=== PATIENT | female | born 1970 | race Caucasian/White ===

== ENCOUNTER 2017-03-27 13:28 | Observation (INO) | payer SELFPAY ==
[2017-03-27] MEDS: MORPHINE SULFATE 4 MG INJ IV PRN ×3 (14:05→22:18)
[2017-03-27] MEDS: Sodium Chloride 0.9% 1000 ML 1,000 ML IV SCH (14:07)
[2017-03-27 14:08] LABS: BASOPHIL % 0.4 % (0.0-0.4); Eosinophil % 0.8 % (0.00-5.0); Granulocytes % 79.9 % (36.0-66.0); Lymphocytes % 14.7 % (24.0-44.0); Mean Corpuscular Hemoglobin 31.9 pg (26-32); Mean Platelet Volume 11.6 fl (6-9.5); Monocytes % 4.2 % (0.0-12.0); Platelet Count 335 K/mm3 (150-450); Red Blood Count 4.11 M/mm3 (4.1-5.4); Red Cell Distribution Width 12.3 % (11.5-14.0); White Blood Count 10.9 K/mm3 (4.0-10.5)
[2017-03-27] MEDS: Levofloxacin 500MG/100ML D5W 500 MG/100 ML BAG IV SCH (14:48)
[2017-03-27 14:49] LABS: ALBUMIN 3.7 g/dL (3.4-5.0); ALKALINE PHOSPHATASE 67 U/L (46-116); ANION GAP 12.8 MEQ/L (5-15); BLOOD UREA NITROGEN 6 mg/dL (9-20); CHLORIDE 105 mEq/L (98-107); Carbon Dioxide 26.7 mEq/L (21-32); Glucose 93 MG/DL (70-110); Potassium 3.9 mEq/L (3.5-5.1); SGOT/AST 14 U/L (15-37); SODIUM 141 mEq/L (136-145); Total Protein 6.9 gm/dL (6.4-8.2)
[2017-03-27 15:23] LABS: SGPT/ALT 7 U/L (12-78)
--- NOTE | 2017-03-27 15:46 | XRAY ---
Indication: Left lower quadrant pain. Multiple contiguous axial images obtained through the abdomen and pelvis using 80 cc Isovue 370 contrast. Enteric contrast also given. Comparison: None Lung bases are clear. Heart is not enlarged. Contrasted stomach and bowel loops appear nonobstructed. There is mild/moderate diffuse scattered colonic fecal debris throughout without diverticulosis/diverticulitis. Normal appendix. No free fluid/air. Previous cholecystectomy. Mild biliary tree prominence with the common bile duct up to 12 mm in diameter, within normal limits for cholecystectomy. 2.1 cm right ovary cyst. Uterus surgically absent. Remaining liver, pancreas, spleen, adrenal glands, kidneys, ureters, and bladder appear unremarkable. Minimal aortoiliac calcifications. No AAA or pathologic retroperitoneal lymphadenopathy. Osseous structures intact with lumbosacral junction degenerative disc disease. No ventral or inguinal hernias. Impression: 1. Fecal stasis without obstruction. 2. 2.1 cm right ovary cyst. 3. No acute intra-abdominal/pelvic abnormalities. CT DI 22.02
[2017-03-27 15:55] LABS: Erythrocyte Sedimentation Rate 9 mm/hr (0-20)
[2017-03-27] MEDS: FLAGYL 500 MG IVPB 500 MG/100 ML BAG IV SCH ×2 (17:32→23:15)
[2017-03-27] MEDS: NICODERM CQ 14 MG TOP SCH (17:59)
[2017-03-27] MEDS: TYLENOL 325 MG PO PRN (18:00)
[2017-03-27] MEDS: Tums EX 750 MG PO PRN (23:32)
[2017-03-28] MEDS: MORPHINE SULFATE 4 MG INJ IV PRN ×4 (03:02→18:03)
[2017-03-28] MEDS: Sodium Chloride 0.9% 1000 ML 1,000 ML IV SCH ×2 (03:06→15:47)
[2017-03-28] MEDS: FLAGYL 500 MG IVPB 500 MG/100 ML BAG IV SCH ×4 (05:46→23:27)
--- NOTE | 2017-03-28 07:43 | PCM.NOTE ---
Date and Time: 03/28/17 0741 Subjective Assessment: patient feeling a little better today, still with significant LLQ pain. tolerating clears and pain seems slightly improved Objective Exam General Appearance: no apparent distress, alert Respiratory Exam: normal breath sounds, lungs clear, No respiratory distress Cardiovascular Exam: regular rate/rhythm, normal heart sounds Gastrointestinal/Abdomen Exam: tenderness (LLQ) Extremity Exam: normal inspection, normal range of motion OBJECTIVE DATA Vital Signs: Vital Signs - 24 hr Temp Pulse Resp BP Pulse Ox 03/28/17 07:24 98.1 F 59 L 20 111/64 97 03/28/17 04:25 98.0 F 58 L 15 124/69 97 03/27/17 23:44 98.0 F 62 16 126/60 96 03/27/17 20:00 97.9 F 57 L 16 122/70 96 03/27/17 14:14 98.2 F 65 20 136/71 99 03/27/17 13:43 98.2 F 65 20 136/71 99 Pain Assessment - Last Documented Pain Intensity 5 Pain Scale Used 0-10 Pain Scale Intake and Output: Intake & Output 03/25/17 03/26/17 03/27/17 03/28/17 11:59 11:59 11:59 11:59 Intake Total 2479 Output Total 500 Balance 1979 Weight 79.889 kg Lab Results: Lab Results-Last 24 Hours 03/27/17 03/27/17 Range/Units 13:50 14:15 WBC 10.9 H (4.0-10.5) K/mm3 RBC 4.11 (4.1-5.4) M/mm3 Hgb 13.1 (12.0-16.0) gm/dl Hct 40.7 (35-47) % MCV 99.0 (78-100) fl MCH 31.9 (26-32) pg MCHC 32.2 (32-36) g/dl RDW 12.3 (11.5-14.0) % Plt Count 335 (150-450) K/mm3 MPV 11.6 H (6-9.5) fl Gran % 79.9 H (36.0-66.0) % Lymphocytes % 14.7 L (24.0-44.0) % Monocytes % 4.2 (0.0-12.0) % Eosinophils % 0.8 (0.00-5.0) % Basophils % 0.4 (0.0-0.4) % Basophils # 0.04 (0-0.4) ESR 9 (0-20) mm/hr Sodium 141 (136-145) mEq/L Potassium 3.9 (3.5-5.1) mEq/L Chloride 105 (98-107) mEq/L Carbon Dioxide 26.7 (21-32) mEq/L Anion Gap 12.8 (5-15) MEQ/L BUN 6 L (9-20) mg/dL Creatinine 0.57 (0.55-1.30) mg/dl Estimated GFR > 60 ML/MIN Glucose 93 (70-110) MG/DL Calcium 9.3 (8.5-10.1) mg/dL Total Bilirubin 0.30 (0.2-1.0) mg/dL AST 14 L (15-37) U/L ALT 7 L (12-78) U/L Alkaline Phosphatase 67 (46-116) U/L Serum Total Protein 6.9 (6.4-8.2) gm/dL Albumin 3.7 (3.4-5.0) g/dL Radiology Exams: Radiology Procedures Category Date Time Status ABDOMEN AND PELVIS W CONTRAST [CT] Routine Exams 03/27/17 14:30 Completed Assessment/Plan (1) Acute diverticulitis Current Visit: Yes Status: Acute Assessment & Plan: clinically with illness and exam c/w diverticulitis. ct was negative, will continue with IV levaquin and flagyl at this time Code(s): K57.92 - DVTRCLI OF INTEST, PART UNSP, W/O PERF OR ABSCESS W/O BLEED
[2017-03-28] MEDS: Levofloxacin 500MG/100ML D5W 500 MG/100 ML BAG IV SCH (10:04)
[2017-03-28] MEDS: TYLENOL 325 MG PO PRN (10:08)
[2017-03-28] MEDS: NICODERM CQ 14 MG TOP SCH (17:25)
[2017-03-28] MEDS ORDERED: Zofran 4 MG/2 ML VIAL IV PRN (21:02)
[2017-03-28] MEDS: DILAUDID 2 MG INJECTION IV PRN (21:17)
[2017-03-28] MEDS: Tums EX 750 MG PO PRN (21:18)
[2017-03-29] MEDS: DILAUDID 2 MG INJECTION IV PRN ×6 (02:25→23:18)
[2017-03-29] MEDS: FLAGYL 500 MG IVPB 500 MG/100 ML BAG IV SCH ×4 (05:40→23:29)
[2017-03-29 06:02] LABS: BASOPHIL % 0.5 % (0.0-0.4); Eosinophil % 1.7 % (0.00-5.0); Granulocytes % 63.4 % (36.0-66.0); Lymphocytes % 27.3 % (24.0-44.0); Mean Cell Volume 100.3 fl (78-100); Mean Platelet Volume 11.2 fl (6-9.5); Monocytes % 7.1 % (0.0-12.0); Platelet Count 270 K/mm3 (150-450); Red Blood Count 3.21 M/mm3 (4.1-5.4); Red Cell Distribution Width 12.2 % (11.5-14.0); White Blood Count 7.8 K/mm3 (4.0-10.5)
[2017-03-29 06:15] LABS: ANION GAP 10.2 MEQ/L (5-15); BLOOD UREA NITROGEN 6 mg/dL (9-20); CHLORIDE 109 mEq/L (98-107); Glucose 94 MG/DL (70-110); Potassium 3.6 mEq/L (3.5-5.1); SODIUM 141 mEq/L (136-145)
--- NOTE | 2017-03-29 08:12 | PCM.NOTE ---
Date and Time: 03/29/17 0809 Subjective Assessment: patient had worsening pain last night after eating, describes rumbling pain in her lower stomach and has had diarrhea as well. Objective Exam General Appearance: no apparent distress, alert Respiratory Exam: normal breath sounds, lungs clear, No respiratory distress Cardiovascular Exam: regular rate/rhythm, normal heart sounds Gastrointestinal/Abdomen Exam: tenderness (LLQ), No mass, No guarding Extremity Exam: normal inspection, normal range of motion OBJECTIVE DATA Vital Signs: Vital Signs - 24 hr Temp Pulse Resp BP Pulse Ox 03/29/17 07:22 98.5 F 51 L 16 117/59 96 03/29/17 04:08 98.0 F 46 L 16 112/61 94 L 03/29/17 00:08 98.1 F 60 15 127/65 96 03/28/17 20:19 98.7 F 57 L 16 130/74 97 03/28/17 15:48 98.1 F 55 L 18 104/58 98 03/28/17 12:29 98.2 F 57 L 18 105/58 97 Pain Assessment - Last Documented Pain Intensity 8 Pain Scale Used 0-10 Pain Scale Intake and Output: Intake & Output 03/26/17 03/27/17 03/28/17 03/29/17 11:59 11:59 11:59 11:59 Intake Total 2839 4142 Output Total 500 300 Balance 2339 3842 Weight 79.889 kg Lab Results: Lab Results-Last 24 Hours 03/29/17 03/29/17 Range/Units 05:05 05:05 WBC 7.8 (4.0-10.5) K/mm3 RBC 3.21 L (4.1-5.4) M/mm3 Hgb 10.3 L (12.0-16.0) gm/dl Hct 32.2 L (35-47) % MCV 100.3 H (78-100) fl MCH 32.0 (26-32) pg MCHC 32.0 (32-36) g/dl RDW 12.2 (11.5-14.0) % Plt Count 270 (150-450) K/mm3 MPV 11.2 H (6-9.5) fl Gran % 63.4 (36.0-66.0) % Lymphocytes % 27.3 (24.0-44.0) % Monocytes % 7.1 (0.0-12.0) % Eosinophils % 1.7 (0.00-5.0) % Basophils % 0.5 (0.0-0.4) % Basophils # 0.04 (0-0.4) Sodium 141 (136-145) mEq/L Potassium 3.6 (3.5-5.1) mEq/L Chloride 109 H (98-107) mEq/L Carbon Dioxide 25.0 (21-32) mEq/L Anion Gap 10.2 (5-15) MEQ/L BUN 6 L (9-20) mg/dL Creatinine 0.56 (0.55-1.30) mg/dl Estimated GFR > 60 ML/MIN Glucose 94 (70-110) MG/DL Calcium 8.3 L (8.5-10.1) mg/dL Radiology Exams: Radiology Procedures Category Date Time Status ABDOMEN AND PELVIS W CONTRAST [CT] Routine Exams 03/27/17 14:30 Completed Assessment/Plan (1) Acute diverticulitis Current Visit: Yes Status: Acute Assessment & Plan: clinically seems consistent with diverticulitis vs colitis, will check stool studies since patient is having diarrhea now. Code(s): K57.92 - DVTRCLI OF INTEST, PART UNSP, W/O PERF OR ABSCESS W/O BLEED
[2017-03-29] MEDS: Levofloxacin 500MG/100ML D5W 500 MG/100 ML BAG IV SCH (09:27)
[2017-03-29] MEDS: TYLENOL 325 MG PO PRN (12:50)
[2017-03-29] MEDS: Sodium Chloride 0.9% 1000 ML 1,000 ML IV SCH (16:52)
[2017-03-29] MEDS: NICODERM CQ 14 MG TOP SCH (17:24)
[2017-03-30] MEDS: TYLENOL 325 MG PO PRN (00:31)
[2017-03-30] MEDS: DILAUDID 2 MG INJECTION IV PRN ×3 (04:15→12:13)
[2017-03-30] MEDS: Sodium Chloride 0.9% 1000 ML 1,000 ML IV SCH (04:19)
[2017-03-30] MEDS: FLAGYL 500 MG IVPB 500 MG/100 ML BAG IV SCH (05:57)
[2017-03-30 06:14] LABS: BASOPHIL % 0.3 % (0.0-0.4); Granulocytes % 57.6 % (36.0-66.0); Lymphocytes % 32.9 % (24.0-44.0); Mean Cell Volume 99.7 fl (78-100); Mean Platelet Volume 11.4 fl (6-9.5); Monocytes % 7.2 % (0.0-12.0); Platelet Count 276 K/mm3 (150-450); Red Blood Count 3.12 M/mm3 (4.1-5.4); White Blood Count 7.5 K/mm3 (4.0-10.5)
[2017-03-30 06:37] LABS: ALBUMIN 2.9 g/dL (3.4-5.0); ALKALINE PHOSPHATASE 48 U/L (46-116); ANION GAP 11.7 MEQ/L (5-15); BLOOD UREA NITROGEN 8 mg/dL (9-20); CHLORIDE 110 mEq/L (98-107); Carbon Dioxide 22.7 mEq/L (21-32); Glucose 112 MG/DL (70-110); Potassium 3.5 mEq/L (3.5-5.1); SGOT/AST 15 U/L (15-37); SGPT/ALT 17 U/L (12-78); SODIUM 141 mEq/L (136-145); Total Protein 5.3 gm/dL (6.4-8.2)
[2017-03-30 07:53] VITALS: BP 140/69; PULSE 48
[2017-03-30 08:44] VITALS: O2SAT 98
[2017-03-30] MEDS: Levofloxacin 500MG/100ML D5W 500 MG/100 ML BAG IV SCH (08:51)
--- NOTE | 2017-03-30 11:03 | PCM.DCORD ---
- Discharge Discharge Date: 03/30/17 Disposition: Home, Self-Care Condition: Stable Prescriptions: New Metronidazole 500 mg [Flagyl 500 MG] 500 mg PO QID #16 tablet Hydrocodone Bit/Acetaminophen [Hydrocodon-Acetaminophen 5-325] 1 each PO QID PRN #20 tablet PRN Reason: Pain Levofloxacin [Levofloxacin 500 MG Tablet] 500 mg PO DAILY #4 tablet Continue Codeine/Butalbital/ASA/Caffein [Fiorinal with Codeine #3 Cap] 1 each PO Q4HPRN PRN PRN Reason: migraines Follow up with: STEVIE ALCAZAR MD [Primary Care Provider] - 04/05/17 9:45 am TIERRA SUGGS [ACTIVE STAFF] - 04/02/17 4:00 pm (at [facility]) Forms: Patient Portal Information
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
--- NOTE | 2017-04-01 12:38 | DS ---
DISCHARGE DIAGNOSIS: DIVERTICULITIS. DISCHARGE PHYSICAL EXAMINATION: VITALS: Temperature current 98.5F, temperature max 98.5F, heart rate 47 to 58, respiratory rate 16 to 18, blood pressure 112 to 143 over 57 to 89. Oxygen saturation 95 to 98% on room air. GENERAL: The patient is sitting up in bed a pleasant talkative lady in no acute distress. CVS: She has a regular rate and rhythm. No murmurs, gallops or rubs are appreciated. CHEST: Clear to auscultation bilaterally. No crackles or wheezes. ABDOMEN: She has normal bowel sounds, some mild left lower quadrant tenderness. No guarding, no rigidity. EXTREMITIES: No clubbing, cyanosis or edema. SKIN: Warm, dry and intact. REVIEW OF SYSTEMS: The patient reports she has some back pain from being in bed and that the Dilaudid does not always help with this. She reports some loose stools. She has been able to take food by mouth without problems. She would like to try to go home. HOSPITAL COURSE: DIVERTICULITIS: Dr. Diaz treated this patient until the date of discharge. She was on IV Levaquin, IV metronidazole. I plan to continue four more days as an outpatient. [facility] was contacted and stated that Levaquin for four days would be $16.99 and metronidazole for 500 mg four times a day would be $26.99. The patient is agreeable to this and states that she would be able to afford this. She is also asking for some pain medication at home so will also send her with a script for hydrocodone 5/325 mg 1 tablet p.o. four times a day as needed for pain #20 with no refills. The patient was told not to drive while taking this and it was just for short term pain. She will follow up with Dr. Diaz this coming week. She also was seen by general surgeons and they plan to do a colonoscopy as an outpatient and she has a follow up scheduled with them as well. Stool came back negative for Clostridium difficile. The culture is still pending of course because it was just sent today. The patient was discharged to home in good condition. Please see discharge order for the discharge medications.
[2017-04-01 15:19] LABS: Giardia Antigen EIA Negative (Negative)
== END 2017-03-30 13:20 | disposition home or self-care (01) ==
LOC: MED SURG 13:28
PROVIDERS: ADMIT Family Medicine; ATTEND Family Medicine
DX: K57.92 Diverticulitis of intestine, part unspecified, without perforation or abscess without bleeding (principal)
CPT/HCPCS: 36415; 74177; 80048; 80053; 85025; 85652; 87040; 87045; 87046; 87177; 87209; 87335; 87493; G0378; J1170; J1956; J2270; J2405; A9270-GY